=== PATIENT | male | born 1965 | race Caucasian/White ===

== ENCOUNTER 2020-08-12 03:48 | Emergency (ER) | payer BC, SELFPAY ==
[2020-08-12 03:49] VITALS: BP 184/95; PULSE 85; RESP 16; TEMP 36.8; O2SAT 98; BMI 25.4
--- NOTE | 2020-08-12 03:52 | RAD_ITS ---
STUDY: X-RAY CHEST REASON FOR EXAM: Male, 54 years old. Awoke with chest pain. TECHNIQUE: AP portable chest. COMPARISON: None. FINDINGS: The lungs are clear and expanded. There is no demonstrated pleural abnormality. Normal size heart. Normal mediastinum and janine. Normal visualized pulmonary arteries. Normal visualized aortic arch and descending thoracic aorta. Normal visualized thoracic spine. Normal visualized ribs, clavicles, and shoulders. There is no demonstrated abnormality of the visualized soft tissue structures of the upper abdomen. RAD/Chest 1 View (Portable) IMPRESSION: Normal x-ray examination of the chest. Electronically Signed: Nile Gregory MD at 4:28 EST , Service support ,
--- NOTE | 2020-08-12 03:52 | EKG12_ITS ---
Test Reason : Blood Pressure : / mmHG Vent. Rate : 082 BPM Atrial Rate : 082 BPM P-R Int : 152 ms QRS Dur : 102 ms QT Int : 424 ms P-R-T Axes : 064 004 051 degrees QTc Int : 495 ms Normal sinus rhythm Prolonged QT Abnormal ECG Confirmed by BRADLEY MISTRY, SONIYA ([id number]), copy editor JHONATAN ACEVEDO ([id number]) on 08/13/2020 9:52:04 AM Referred By: Confirmed By:SONIYA HUERTA MD
[2020-08-12 03:55] VITALS: BP 188/105; PULSE 92; RESP 20; O2SAT 97
[2020-08-12 03:56] VITALS: O2SAT 98
[2020-08-12 03:59] LABS: Absolute Lymphocyte Count 1.92 X10^3/uL (0.83-4.51); Absolute Neutrophil Count 2.9 X10^3/uL (2.0-7.7); Basophil# 0.03 X10^3/uL; Basophil% 0.5 % (0-1); Eosinophils% 1.8 % (0-5); Hematocrit 42.5 % (40-54); Hemoglobin 14.9 g/dL (13.0-16.5); Lymphocyte # 1.92 X10^3/ul (4.0); Mean Corp Hgb Conc 35.1 g/dL (32-36); Mean Corpuscular Hgb 28.6 pg (27.0-32.0); Mean Corpuscular Volume 81.6 fL (80-94); Mean Platelet Vol. 9.8 fl (6.2-12.0); Monocyte# 0.54 X10^3/uL; Monocyte% 9.9 % (0-10); NRBC Flagged by Analyzer 0 % (0-5); Neutrophil # 2.87 X10^3/uL (2.7-7.7); Neutrophil % 52.4 % (47-70); Platelet Count 159 K/mm3 (150-450); RBC Distribution Width CV 11.7 % (11.6-14.6); RBC Distribution Width SD 34.3 fl (35.1-43.9); Red Blood Count 5.21 M/mm3 (4.6-6.2); White Blood Count 5.5 K/mm3 (4.4-11.0)
[2020-08-12] MEDS: Aspirin 81 MG TAB.CHEW 324 MG PO (04:01)
--- NOTE | 2020-08-12 04:03 | ED.VISSUMM ---
- ER Visit Summary Date of Service: 08/12/20 Chief Complaint: Left-sided chest discomfort History of Present Illness: The patient is a 54 M has medical history of hypertension. For the last month he has been out of his medications amlodipine and lisinopril hydrochlorothiazide combination. He is just getting a new physician locally and will be not seeing them until Monday. Since has been out of his blood pressure medication he has not been taking it. He has no cardiac history. He states in the last day or so he has had left-sided chest discomfort that he describes as a knot or a cramp in his chest. He denies any shortness of breath, nausea or diaphoresis. He denies any radiation of of his pain to his left neck or jaw or down his left arm. He has no exertional chest pain. He walks frequently. 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 He has never had a cardiac work-up. He has never had a stress test or heart cath. There is no significant family history of coronary disease. Never had a DVT or PE. He has had no recent travel, surgery, immobilization, leg pain, leg swelling or hemoptysis. Physical Examination: Middle-aged male no acute distress initial blood pressure is elevated 184/95. Pulse ox 98% on room air no signs of hypoxia. HEENT exam unremarkable. Neck nontender no JVD. Lungs clear to auscultation bilaterally. Heart regular rhythm no murmur. Rate about 80. Chest wall nontender. No ecchymosis or bruising. No subcu air crepitance. No reproducible pain. Abdomen soft nontender normal bowel sounds no peritoneal signs. Patient moving all 4 extremities. Equal symmetrical radial pulses. Calves are nontender without edema or cords. Back unremarkable. Neurologically is awake alert with no focal motor deficits. Test Results: EKG shows normal sinus rhythm rate 82 with no acute signs of IA or ischemia. No old EKG available for comparison. BC shows a white count of 5 hemoglobin 14. Chemistries unremarkable except potassium low at 3.0. Normal creatinine gap. Troponin normal. Chest x-ray portable 1 view interpreted by myself shows no acute abnormality. Normal cardiac silhouette and mediastinum. No infiltrate. Repeat exam at 4:29 AM patient is resting comfortably. Pain-free. He and I discussed his test results. At 5:45 AM he is doing well he is symptom-free. His current blood pressure is 157 / 95. Emergency Department Course and Treatment: 54-year-old male with atypical left-sided chest discomfort. Currently has been out of his blood pressure medications for a month so he has not been taking his medication and his blood pressure is elevated. He will undergo a cardiac work-up. Has had no exertional symptoms. Treatment Plan: I wrote him prescriptions for both his blood pressure medications amlodipine and the lisinopril hydrochlorothiazide. He did have that is filled here by the hospital pharmacy prior to discharge. His pressures improving after the oral blood pressure medication here. He is comfortable being discharged home with outpatient follow-up with his prescheduled appointment. Disposition: Discharge Impression: Acute atypical left-sided chest pain History of hypertension noncompliant with medications due to him being out of his prescriptions. This note was generated with [employer] dictation software. It may contain incorrect words, spelling, and punctuation that were not noted in review of the chart prior to signing ED Disposition - Plan for ED Patient: Disposition: Home or Assisted Living Instructions: ED Chest Pain, Uncertain Cause, ED Hypertension, Established Prescriptions: Lisinopril/Hydrochlorothiazide [Lisinopril-Hctz 20-12.5 mg Tab] 1 ea PO DAILY #30 tab Prescription Printed Amlodipine [Norvasc] 5 mg PO DAILY #30 tab Prescription Printed Referrals: Adarsh Coronel MD [Primary Care Provider] - Keep [facility] appointment Additional Instructions: Resume your blood pressure medications as prescribed. Follow-up with your new primary care physician Dr. Hardik Coronel on Monday. Return if recurrent chest pain, shortness of breath or feel worse. When you see Dr. Mora on Monday discussed with him the possibility of an outpatient stress test.
[2020-08-12 04:21] LABS: Anion Gap 6 (5-15); BUN 10 mg/dL (7-18); BUN/Creat Ratio 11.1 RATIO (10-20); Calcium,Total 9.4 mg/dL (8.5-10.1); Chloride 104 mmol/L (98-107); EST Glomerular Filtration Rate 93 mL/min (>60); Est Glom Filt Rate - Afr Amer 113 mL/min (>60); Estimated Creatinine Clearance 107.27 ml/min; Glucose 118 mg/dL (74-106); Sodium Level 139 mmol/L (136-145)
--- NOTE | 2020-08-12 04:31 | ED.DEP ---
ED Disposition - Plan for ED Patient: Disposition: Home or Assisted Living Instructions: ED Chest Pain, Uncertain Cause, ED Hypertension, Established Prescriptions: Lisinopril/Hydrochlorothiazide [Lisinopril-Hctz 20-12.5 mg Tab] 1 ea PO DAILY #30 tab Prescription Printed Amlodipine [Norvasc] 5 mg PO DAILY #30 tab Prescription Printed Referrals: Adarsh Coronel MD [Primary Care Provider] - Keep [facility] appointment Additional Instructions: Resume your blood pressure medications as prescribed. Follow-up with your new primary care physician Dr. Hardik Coronel on Monday. Return if recurrent chest pain, shortness of breath or feel worse. When you see Dr. Mora on Monday discussed with him the possibility of an outpatient stress test.
[2020-08-12] MEDS: Lisinopril 20 MG Tablet PO (04:36)
[2020-08-12] MEDS: hydroCHLOROthiazide 12.5mg 12.5 MG PO (04:36)
[2020-08-12 04:38] VITALS: BP 175/105; PULSE 91; RESP 19; O2SAT 97
[2020-08-12 05:35] VITALS: BP 161/95; PULSE 74; RESP 16; O2SAT 95
== END 2020-08-12 06:59 | disposition home or self-care (01) ==
PROVIDERS: Emergency Provider Emergency Medicine; PCP Family Medicine
DX: R07.89 Other chest pain (principal); I10 Essential (primary) hypertension; Z91.14 Patient's other noncompliance with medication regimen
CPT/HCPCS: 71045; 80048; 84484; 85025; 93005; 99285; A4216

== ENCOUNTER → 2020-08-17 16:21 | Outpatient (CLI) | payer BC, SELFPAY ==
[2020-08-12 03:49] VITALS: BMI 25.4
[2020-08-17 18:52] LABS: Anion Gap 6 (5-15); BUN 20 mg/dL (7-18); Calcium,Total 9.7 mg/dL (8.5-10.1); Chloride 101 mmol/L (98-107); Creatinine, Serum 1.05 mg/dL (0.70-1.30); EST Glomerular Filtration Rate 78 mL/min (>60); Est Glom Filt Rate - Afr Amer 95 mL/min (>60); Glucose 118 mg/dL (74-106); Potassium 3.7 mmol/L (3.5-5.1); Sodium Level 137 mmol/L (136-145)
== END ==
PROVIDERS: PCP Family Medicine; Visit Provider Family Medicine
DX: I10 Essential (primary) hypertension (principal)
CPT/HCPCS: 36415; 80048

== ENCOUNTER → 2020-08-26 09:27 | Outpatient (CLI) | payer BC, SELFPAY ==
[2020-08-12 03:49] VITALS: BMI 25.4
--- NOTE | 2020-08-26 09:33 | STE_ITS ---
Reason For Study: Chest pain Stress Results Protocol: Brandt Protocol Maximum Predicted HR: 167 bpm Target HR: 142 bpm % Maximum Predicted HR: 90 % Heart Stage Duration Rate BP Comment (mm:ss) (bpm) baseline 88 158/88no chest pain stage 1 3:00 117 168/88no chest pain stage 2 3:00 127 180/80no chest pain stage 3 3:00 146 186/80no chest pain stage 4 0:25 150 / no chest pain Pt had a 2 minute period of left sided chest pressure rated 4/10. recovery 95 152/70Resolved by 5 minutes of recovery. No other symptoms. Stress Duration: 9:25 mm:ss Maximum Stress HR: 150 bpm Baseline Echocardiogram Findings Stress Echo Wall motion Data Resting WM Intermediate WM Stress WM Interpretation Summary Stress echo. 54-year-old man with a history of chest pain. Resting EKG demonstrates normal sinus rhythm with a rate of 83 bpm normal intervals are noted resting blood pressure is 158/88 mmHg. The patient exercised according to the regular Brandt protocol for a total duration of 9 minutes and 25 seconds. The maximum heart rate attained was 151 bpm which was 90% of max impacted heart rate the maximum workload was 11.4 metabolic equivalents. The patient maintained sinus rhythm throughout the recording at rest there were no ST or T wave changes noted to suggest ischemia and at peak exercise upsloping ST changes were noted which did not correlate with any ischemia. The test was terminated due to target heart rate being achieved. The peak blood pressure was 186/80 mmHg with a rate- pressure product of 27,100 with good blood pressure response to exercise. Stress echocardiographic images. Resting echocardiographic images demonstrated preserved left ventricular systolic function estimated at 60%. At peak exercise there was thickening of all muir reduction in low ventricular cavity size and peaking of ejection fraction at 70%. No new wall motion abnormalities were present. Conclusion: Normal exercise stress echo with no EKG criteria for ischemia at a high workload. No obvious clinical angina noted. Preserved ejection fraction at rest and with peak exercise. Ordering Physician: Adarsh Coronel Referring Physician: Adarsh Coronel Performed By: Bryan Garvin RCS
== END ==
PROVIDERS: PCP Family Medicine; Referring Provider Family Medicine; Visit Provider Family Medicine
DX: R07.9 Chest pain, unspecified (principal)
CPT/HCPCS: 93017; 93350; Q9957; A4216

== ENCOUNTER → 2023-03-02 | Outpatient (CLI) | payer BC, SELFPAY ==
[2023-03-02 11:13] LABS: Anion Gap 3 (5-15); BUN 15 mg/dL (7-18); BUN/Creat Ratio 16.6 RATIO (10-20); Calcium,Total 9.2 mg/dL (8.5-10.1); Chloride 108 mmol/L (98-107); Cholesterol 159 mg/dL (200); EST Glomerular Filtration Rate 92 mL/min (>60); Est Glom Filt Rate - Afr Amer 112 mL/min (>60); Glucose 140 mg/dL (74-106); High Density Lipoprotein 40 mg/dL; PSA,Total - Annual Screen 0.31 ng/mL (0.00-4.00); Potassium 3.8 mmol/L (3.5-5.1); Sodium Level 141 mmol/L (136-145); Triglycerides 86 mg/dL; Very Low Density Lipoprotein 17 mg/dL (5-40)
== END | disposition home or self-care (01) ==
LOC: MFPLAB 08:21
PROVIDERS: PCP Family Medicine; Visit Provider Family Medicine
DX: I10 Essential (primary) hypertension (principal); Z12.5 Encounter for screening for malignant neoplasm of prostate
CPT/HCPCS: 36415; 80048; 80061; 84153; G0103